=== PATIENT | male | born 1970 | race Caucasian/White ===

== ENCOUNTER 2023-07-05 13:12 | Emergency (ER) | payer MEDICAID ==
[~2023-07-05] VITALS: Ht 172.7 cm; Wt 69.0 kg
[2023-07-05] MEDS: HYDROmorphone 1 mg/ml syringe IV ONE (14:20)
[2023-07-05 17:31] LABS: EOSINOPHILS # (AUTO) 0.3 X10'3 (0-0.9); HEMOGLOBIN 11.6 g/dl (14.0-17.9); PLATELET COUNT 640 X10'3 (140-440)
[2023-07-05 17:33] LABS: BASOPHILS % (AUTO) 0.3 % (0-1); EOSINOPHILS % (AUTO) 2.5 % (0-6); HEMATOCRIT 34.5 % (42.0-52.0); LYMPHOCYTES # (AUTO) 2.9 X10'3 (1.1-4.8); LYMPHOCYTES % (AUTO) 23.3 % (21-51); MEAN CORPUSCULAR HEMOGLOBIN 33.7 PG (27.0-31.0); MEAN CORPUSCULAR HGB CONC 33.7 g/dL (33.0-36.5); MEAN CORPUSCULAR VOLUME 100.2 FL (78-98); MONOCYTES # (AUTO) 1.2 X10'3 (0-0.9); MONOCYTES % (AUTO) 9.6 % (2-12); NEUTROPHILS # (AUTO) 8.1 X10'3 (1.8-7.7); NEUTROPHILS % (AUTO) 64.3 % (42-75); RED BLOOD COUNT 3.45 X10'6 (4.70-6.10); RED CELL DISTRIBUTION WIDTH 13.8 % (11.5-14.5); WHITE BLOOD COUNT 12.5 X10'3 (4.5-11.0)
[2023-07-05 17:40] LABS: ALBUMIN 3.3 G/DL (3.4-5.0); ANION GAP 10 (8-16); BLOOD UREA NITROGEN 14 MG/DL (7-18); BUN/CREATININE RATIO 20.6 (10.0-20.0); CALCIUM 9.5 MG/DL (8.5-10.1); CHLORIDE 100 MMOL/L (99-107); CREATININE 0.68 MG/DL (0.60-1.10); GLUCOSE 90 MG/DL (70-104); POTASSIUM 3.7 MMOL/L (3.5-5.1); SODIUM 137 MMOL/L (135-145); eCRCL 122 ML/MIN; eGFR > 90 ML/MIN
[2023-07-05] MEDS ORDERED: iohexol 350MG/ML 100ml bottle IV ONE (18:05)
[2023-07-05] MEDS: HYDROmorphone inj. 0.5 MG/0.5 ML DISP.SYRIN IV ONE (20:14)
[2023-07-05 21:07] VITALS: BP 116/81; PULSE 71; RESP 16; TEMP 99.6; O2SAT 95
== END 2023-07-05 22:20 | disposition home or self-care (01) ==
LOC: ER 13:12
DX: T79.7XXA Traumatic subcutaneous emphysema, initial encounter (principal); F32.A Depression, unspecified; Z72.89 Other problems related to lifestyle; Z59.00 Homelessness unspecified; X58.XXXA Exposure to other specified factors, initial encounter; Y93.89 Activity, other specified; Y92.89 Other specified places as the place of occurrence of the external cause; Y99.8 Other external cause status
CPT/HCPCS: 36415; 73206; 80048; 83605; 84145; 85025; 87040; 96374; 96376; 99285; J1170; J3490; Q9967

== ENCOUNTER 2023-07-22 10:37 | Outpatient (CLI) | payer MEDICAID ==
[2023-07-22] MEDS ORDERED: GADOTERATE MEGLUMINE 7.5 MMOL/15 ML VIAL IV ONE (18:04)
== END 2023-07-22 23:59 | disposition home or self-care (01) ==
LOC: RAD 10:37 → MRI 23:59
PROVIDERS: ATTEND Internal Medicine
DX: H74.8X1 Other specified disorders of right middle ear and mastoid (principal); G31.1 Senile degeneration of brain, not elsewhere classified; H53.8 Other visual disturbances; Z86.14 Personal history of Methicillin resistant Staphylococcus aureus infection
CPT/HCPCS: 70553; A9575

== ENCOUNTER 2023-07-26 10:10 | Outpatient (CLI) | payer MEDICAID, OTHER ==
[2023-07-26] MEDS ORDERED: iohexol 300mg/ml 100ml inj. ONE (10:27)
== END 2023-07-26 23:59 | disposition home or self-care (01) ==
LOC: RAD 10:10
PROVIDERS: ATTEND Internal Medicine
DX: R91.8 Other nonspecific abnormal finding of lung field (principal); J98.4 Other disorders of lung
CPT/HCPCS: 71260; 74177; J3490; Q9967

== ENCOUNTER 2023-08-01 10:27 | Outpatient (CLI) | payer MEDICAID, OTHER ==
[~2023-08-01 10:27] MED LIST: iohexol 350MG/ML 100ml bottle IV ONE
== END 2023-08-01 23:59 | disposition home or self-care (01) ==
LOC: RAD 10:27
PROVIDERS: ATTEND Internal Medicine
DX: J43.9 Emphysema, unspecified (principal); I82.409 Acute embolism and thrombosis of unspecified deep veins of unspecified lower extremity; Z86.711 Personal history of pulmonary embolism; Z90.49 Acquired absence of other specified parts of digestive tract
CPT/HCPCS: 71275; J3490; Q9967